=== PATIENT | female | born 1950 | race Caucasian/White ===

== ENCOUNTER 2018-07-05 18:22 | Inpatient (IN) | payer MEDICARE | END 2018-07-08 14:17 | disposition home or self-care (01) | LOC: EDH 18:22 → EDHIP 22:40 → 4CH 23:54 ==

== ENCOUNTER 2023-06-17 17:32 | Emergency (ER) | payer MEDICARE ==
[~2023-06-17] VITALS: Ht 170.2 cm; Wt 104.3 kg
[~2023-06-17 17:32] MED LIST: ALLO300T2 PO; AMLO-257 PO; CALC-190 PO; CHOL50004 PO; DULO60CA64 PO; LEVO200T10 PO; LEVO500T2 PO; LISI1TAB53 PO; LISI20TA24 PO; METF-445 PO; METO25TA6 PO; OMEP20CA12 PO; PRAV40TA3 PO; PREG100C PO; TRAZ-185 PO
[2023-06-17 18:10] LABS: BASOPHILS # (AUTO) 0.03 K/uL (0.00-0.20); BASOPHILS % (AUTO) 0.3 % (0.0-5.0); EOSINOPHILS % (AUTO) 2.3 % (0.0-8.0); IMMATURE GRANULOCYTE ABSOLUTE 0.04 K/uL (0-1); LYMPHOCYTES # (AUTO) 2.6 K/uL (1.0-4.8); LYMPHOCYTES % (AUTO) 30.2 % (21.0-51.0); MEAN CORPUSCULAR HEMOGLOBIN 26.1 pg (27.0-33.0); MEAN CORPUSCULAR VOLUME 79.1 fL (79-99); MONOCYTES # (AUTO) 0.6 K/uL (0.1-1.0); MONOCYTES % (AUTO) 7.3 % (3.0-13.0); NEUTROPHILS # (AUTO) 5.1 K/uL (1.8-7.7); NEUTROPHILS % (AUTO) 59.4 % (40.0-77.0); PLATELET COUNT (AUTO) 359 K/uL (130-400); RED BLOOD CELL COUNT(AUTO) 4.17 MIL/uL (4.00-5.50); RED CELL DISTRIBUTION WIDTH 14.6 % (11.0-15.5); WHITE BLOOD COUNT (AUTO) 8.6 K/uL (4.8-10.8)
[2023-06-17] MEDS: 0.9%NACL 1000ML 1,000 ML IV ONE (18:28)
[2023-06-17 18:33] LABS: CREATININE 2.6 mg/dL (0.5-1.0); POTASSIUM 4.2 mmol/L (3.5-5.1)
[2023-06-17 18:37] LABS: BILIRUBIN,TOTAL 0.3 mg/dL (0.2-1.0); TOTAL PROTEIN, SERUM 8.5 g/dL (6.0-8.3)
[2023-06-17 20:01] LABS: APPEARANCE,URINE CLEAR (CLEAR); BILIRUBIN,URINE NEGATIVE (NEGATIVE); COLOR,URINE LIGHT-YELLOW (YELLOW); GLUCOSE, URINE (UA) >=1000 mg/dL (NEGATIVE); KETONES,URINE NEGATIVE (NEGATIVE); LEUKOCYTE ESTERASE ,URINE 250 Leu/uL (NEGATIVE); NITRATE,URINE NEGATIVE (NEGATIVE); PROTEIN,URINE NEGATIVE (NEGATIVE); UROBILINOGEN,URINE 0.2 mg/dL (0.2-1.0)
[2023-06-17 20:02] LABS: ADD UA MICROSCOPIC YES
[2023-06-17 20:10] LABS: BACTERIA,URINE MANY /HPF (None Seen); MUCUS,URINE RARE LPF (None Seen); SQUAMOUS EPITHELIAL CELL,UR FEW /HPF (0-2)
[2023-06-17] MEDS: CEFTRIAXONE 2GM VIAL IVPB SCH (20:44)
[2023-06-17] MEDS ORDERED: LEVO-70 PO (21:12)
[2023-06-17 21:18] VITALS: BP 120/77; PULSE 77; RESP 18; O2SAT 98
== END 2023-06-17 21:45 | disposition home or self-care (01) ==
LOC: EDH 17:32
DX: E86.0 Dehydration (principal); I12.9 Hypertensive chronic kidney disease with stage 1 through stage 4 chronic kidney disease, or unspecified chronic kidney disease; N18.9 Chronic kidney disease, unspecified; D64.9 Anemia, unspecified; E66.01 Morbid (severe) obesity due to excess calories; N30.01 Acute cystitis with hematuria; Z88.0 Allergy status to penicillin; Z88.8 Allergy status to other drugs, medicaments and biological substances
CPT/HCPCS: 99284; 96365; 84484; 80053; 85025; 87040 ×2; 87088; 83605; 81001; 36415; J0696

== ENCOUNTER 2024-03-02 13:49 | Emergency (ER) | payer MEDICARE ==
[~2024-03-02] VITALS: Ht 167.6 cm; Wt 102.5 kg
[~2024-03-02 13:49] MED LIST changes: +LEVO-70 PO
[2024-03-02 13:51] VITALS: TEMP 99.1
--- NOTE | 2024-03-02 14:05 | ERN ---
ED Note History of Present Illness Stated Complaint: EYE PAIN Chief Complaint: Face Pain/Problem Time Seen by MD: 14:01 Dictation: PATIENT IS A 73-YEAR-OLD FEMALE COMING IN WITH GREEN EXUDATE AND MILD EYELID SWELLING TO THE LEFT EYELID ONSET TWO DAYS PRIOR TO ARRIVAL. SHE DENIES ANY VISUAL CHANGES NO FEVER NO CHILLS NO HISTORY OF GLAUCOMA. SHE HAS NO VISUAL FIELD CUTS. SHE HAS NOT SEEN HER PRIMARY CARE DOCTOR HOWEVER SHE CALLED HER DOCTOR THIS MORNING WHO ADVISED HER TO COME TO THE EMERGENCY ROOM TO RULE OUT SHINGLES OPHTHALMICUS Allergies: Coded Allergies: Penicillins (Unverified Allergy, Intermediate, SHORTNESS OF BREATH, 07/06/18) meloxicam (Unverified Allergy, Mild, 07/06/18) nisoldipine (Unverified Allergy, Unknown, 07/06/18) Home Meds Active Scripts Moxifloxacin HCl (Vigamox 0.5% Ophth Soln) 0.5 % Opsol, 1 DROP OS TID for 7 Days, #5 ML ONE DROP TO LEFT EYE 3 TIMES A DAY FOR SEVEN DAYS. GOOD HAND WASHING AFTER TREATING HER EYE. Prov:FRANKI DE SOUZA NP 03/02/24 Acyclovir (Acyclovir) 800 Mg Tablet, 1 TAB PO 5XDAY for 7 Days, #35 TAB 0 Refills Prov:FRANKI DE SOUZA NP 03/02/24 Levofloxacin (Levofloxacin) 500 Mg Tablet, 500 MG PO DAILY for 7 Days, #7 TAB Prov:FRANKI DE SOUZA NP 06/17/23 Levofloxacin (Levaquin) 500 Mg Tablet, 500 MG PO DAILY for 7 Days, #7 TAB 0 Refills Prov:JOLLY HELLER [facility] 07/08/18 Reported Medications Pravastatin Sodium (Pravastatin Sodium) 40 Mg Tablet, 40 MG PO HS, TAB 07/06/18 Calcium Carbonate/Vitamin D3 (Calcium + Vitamin D Tablet) 1 Each Tablet, 1 EACH PO AM, TAB 07/06/18 Cholecalciferol (Vitamin D3) 5,000 Unit Capsule, 5000 UNIT PO HS, CAP 07/06/18 Lisinopril (Lisinopril) 20 Mg Tablet, 20 MG PO AM, TAB 07/06/18 Levothyroxine Sodium (Levothyroxine Sodium) 200 Mcg Tablet, 200 MCG PO ACBKFST, TAB 07/06/18 Amlodipine Besylate (Amlodipine Besylate) 5 Mg Tablet, 5 MG PO AM, TAB 07/06/18 Metformin HCl (Metformin HCl) 850 Mg Tablet, 850 MG PO BIDMEALS, TAB 07/06/18 Trazodone HCl (Trazodone HCl) 50 Mg Tablet, 50 MG PO HS, TAB 07/06/18 Allopurinol (Allopurinol) 300 Mg Tablet, 300 MG PO AM, TAB 07/06/18 Lisinopril/Hydrochlorothiazide (Lisinopril-Hctz 20-25 mg Tab) 1 Each Tablet, 1 EACH PO BID, TAB 07/06/18 Pregabalin (Lyrica) 100 Mg Capsule, 100 MG PO AM, CAP 07/06/18 Omeprazole (Omeprazole) 20 Mg Capsule.dr, 20 MG PO ACBKFST, CAP 07/06/18 Duloxetine HCl (Duloxetine HCl) 60 Mg Capsule.dr, 60 MG PO AM, CAP 07/06/18 Metoprolol Tartrate (Metoprolol Tartrate) 25 Mg Tablet, 25 MG PO BID, TAB 07/06/18 Past Medical History Past Medical History: Diabetes-Type II, Hypertension, Hypotension, Renal Disese Additional Past Medical Hx: 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 Surgical History: Other Surgical History Other: RIGHT FOOT SURG / THYROIDECTOMY History: Not Applicable RN Note Reviewed/Agreed w/PFSH: Yes Review of System Dictation CONSTITUTIONAL: NEGATIVE EXCEPT FOR HPI HEAD/FACE: NEGATIVE EXCEPT FOR HPI EENT: NEGATIVE EXCEPT FOR HPI GREEN DRAINAGE FROM LEFT EYE WITH UPPER LID SWELLING ERYTHEMA NO LESIONS RESPIRATORY: NEGATIVE EXCEPT FOR HPI GASTROINTESTINAL/ABDOMINAL: NEGATIVE EXCEPT FOR HPI GENITOURINARY: NEGATIVE EXCEPT FOR HPI MUSCULOSKELETAL: NEGATIVE EXCEPT FOR HPI INTEGUMENTARY: NEGATIVE EXCEPT FOR HPI NEUROLOGICAL/PSYCH: NEGATIVE EXCEPT FOR HPI HEMATOLOGIC/LYMPHATIC: NEGATIVE EXCEPT FOR HPI ALL SYSTEMS NEGATIVE, EXCEPT NOTED ABOVE. 13 POINT REVIEW OF SYSTEMS ASSESSED AND ALL NEGATIVE EXCEPT FOR ABOVE. Initial Vital Sign VS Vital Signs Date Time Temp Pulse Resp B/P (MAP) Pulse Ox O2 Delivery O2 Flow Rate FiO2 03/02/24 13:51 99.1 79 16 160/92 95 Room Air 03/02/24 13:51 0 21 Physical Exam Dictation VITAL SIGNS REVIEWED GENERAL APPEARANCE: ALERT, ORIENTED X 3, NO ACUTE DISTRESS, WELL DEVELOPED, NOURISHED. HEAD AND FACE: NON-TRAUMATIC. EYES: PERRL, PINK CONJUNCTIVAS, LEFT UPPER PALPEBRAL FOLD ERYTHEMA WITH GREEN EXUDATE NOTED FOR MY. NO VISUAL FIELD CUT EOMS INTACT EARS: PINNAS INTACT AND NO SIGNS OF TRAUMA OR ERYTHEMA EAR CANALS CLEAR AND NO DISCHARGE TM NO ERYTHEMA NOSE: NO DISCHARGE, NO BLEEDING. OROPHARYNX: MOUTH NORMAL, TONGUE PINK, PHARYNX CLEAR,NO ERYTHEMA, TONSILS NO EXUDATES, NO ABSCESSES NOTED, MUCOUS MEMBRANE MOIST NECK: SUPPLE, NON-TENDER, NO THYROMEGALY, NO MASSES, NO JVD, NO BRUITS BREAST:DEFERRED CHEST:NO TENDERNESS, NO CREPITUS, NO PARADOXICAL MOVEMENT, NO RETRACTIONS LUNGS:CLEAR, WELL-VENTILATED, SYMMETRIC, NO RALES, NO WHEEZING, NO RHONCHI, NO STRIDOR, GOOD BREATH SOUNDS BILATERALLY HEART: REGULAR RATE, REGULAR RHYTHM, NO MURMUR, NO GALLOPS VASCULAR: NO PERIPHERAL EDEMA, ABDOMEN: SOFT, POSITIVE BOWEL SOUNDS, NONDISTENDED, NO GUARDING, NONTENDER, NO REBOUND, NO MASSES NO HEPATOMEGALY, NO SPLENOMEGALY, NO WALSH'S SIGN, NO HERNIAS. RECTAL: DEFERRED GENITAL: DEFERRED NEUROLOGICAL: NORMAL SPEECH, MOTOR FUNCTION INTACT, SENSORY FUNCTION INTACT MUSCULOSKELETAL: NECK NONTENDER, FULL RANGE OF MOTION, BACK NONTENDER, FULL RANGE OF MOTION, EXTREMITIES: NONTENDER, FULL RANGE OF MOTION SKIN: COLOR PINK, DRY, NO TURGOR, NO RASH, NO LACERATIONS, NO ABRASIONS, NO CONTUSIONS. LYMPHATIC: DEFERRED Results (Laboratory/Radiology) Laboratory/Radiology Laboratory Tests Test 03/02/24 14:16 03/02/24 15:15 White Blood Count 6.5 K/uL (4.8-10.8) Red Blood Count 4.30 MIL/uL (4.00-5.50) Hemoglobin 11.2 g/dL (12.0-16.0) L Hematocrit 35.3 % (36-48) L Mean Corpuscular Volume 82.1 fL (79-99) Mean Corpuscular Hemoglobin 26.0 pg (27.0-33.0) L Mean Corpuscular Hemoglobin Concent 31.7 g/dL (32.0-36.0) L Red Cell Distribution Width 15.3 % (11.0-15.5) Platelet Count 304 K/uL (130-400) Mean Platelet Volume 9.0 fL (7.5-10.5) Immature Granulocyte % (Auto) 0.3 % (0-1) Neutrophils (%) (Auto) 72.2 % (40.0-77.0) Lymphocytes (%) (Auto) 16.0 % (21.0-51.0) L Monocytes (%) (Auto) 10.0 % (3.0-13.0) Eosinophils (%) (Auto) 1.2 % (0.0-8.0) Basophils (%) (Auto) 0.3 % (0.0-5.0) Neutrophils # (Auto) 4.7 K/uL (1.8-7.7) Lymphocytes # (Auto) 1.0 K/uL (1.0-4.8) Monocytes # (Auto) 0.7 K/uL (0.1-1.0) Eosinophils # (Auto) 0.08 K/uL (0.00-0.70) Basophils # (Auto) 0.02 K/uL (0.00-0.20) Absolute Immature Granulocyte (auto 0.02 K/uL (0-1) Nucleated Red Blood Cells 0.0 % (0.0-0.19) Sodium Level 140 mmol/L (136-145) Potassium Level 3.7 mmol/L (3.5-5.1) Chloride Level 101 mmol/L (101-111) Carbon Dioxide Level 28 mmol/L (21-32) Blood Urea Nitrogen 25 mg/dL (7-18) H Creatinine 1.8 mg/dL (0.5-1.0) H Glomerular Filtration Rate Calc 29 mL/min (>90) Random Glucose 156 mg/dL (70-105) H Lactic Acid Level 1.7 mmol/L (0.8-2.5) Total Calcium 9.2 mg/dL (8.5-10.1) Urine Color LIGHT-YELLOW (YELLOW) Urine Appearance CLEAR (CLEAR) Urine pH 5.0 (5.0-8.0) Urine Specific [place] 1.018 (1.001-1.031) Urine Protein NEGATIVE mg/dL (NEGATIVE) Urine Glucose (UA) >=1000 mg/dL (NEGATIVE) H Urine Ketones NEGATIVE mg/dL (NEGATIVE) Urine Occult Blood NEGATIVE (NEGATIVE) Urine Nitrate NEGATIVE (NEGATIVE) Urine Bilirubin NEGATIVE mg/dL (NEGATIVE) Urine Urobilinogen 0.2 mg/dL (0.2-1.0) Urine Leukocyte Esterase 25 Dieudonne/uL (NEGATIVE) H Urine RBC 0-1 /HPF (0-1) Urine WBC 2-5 /HPF (0-1) H Urine Squamous Epithelial Cells RARE /HPF (0-2) Urine Bacteria RARE /HPF (None Seen) Labs Reviewed?: Yes ED Course ED Course Orders Procedure Category Date Status Time Cbc With Differential LAB 03/02/24 Complete 14:02 Blood Cult KATY 03/02/24 In Process 14:02 Urinalysis Profile LAB 03/02/24 Complete 14:02 Lactic Acid LAB 03/02/24 Complete 14:02 Basic Metabolic Panel LAB 03/02/24 Complete 14:02 Acyclovir 800 Mg PHA 03/02/24 Complete Tablet (Zovirax 800mg 17:30 Tetracaine Hcl PHA 03/02/24 Complete (Pontocaine 0.5% 17:12 Fluorescein Sodium PHA 03/02/24 In Process (Ksqtb-T-Gwejh At) 17:30 Fluorescein Sodium PHA 03/02/24 Complete (Mdvcn-C-Epveu At) 17:13 Current Medications Medications (Trade) Dose Ordered Sig/Stephanie Route PRN Reason Start Time Stop Time Status Last Admin Dose Admin Acyclovir (Zovirax 800mg Tab) 800 mg ONCE ONCE PO 03/02/24 17:30 03/02/24 17:31 DC 03/02/24 17:17 Fluorescein Sodium (Wmsjl-K-Julha At) 1 strip ONCE OP 03/02/24 17:30 04/01/24 17:29 03/02/24 17:17 Fluorescein Sodium (Ssesy-Q-Iscpz At) 1 strip STK-MED ONCE .ROUTE 03/02/24 17:13 03/02/24 17:14 DC Tetracaine HCl (Pontocaine 0.5% Ophth Soln) 2 drop ONCE STAT OP 03/02/24 17:12 03/02/24 17:13 DC 03/02/24 17:22 Vital Signs Date Time Temp Pulse Resp B/P (MAP) Pulse Ox O2 Delivery O2 Flow Rate FiO2 03/02/24 17:38 72 17 125/70 96 Room Air* 0 21 03/02/24 15:16 71 17 101/62 98 Room Air* 0 21 03/02/24 13:51 99.1 79 16 160/92 95 Room Air* 0 21 03/02/24 13:51 99.1 79 16 160/92 95 Room Air 1705/NO OBSERVABLE LESIONS AROUND LEFT EYE. NO VESICULAR LESIONS NO ACUTE PAIN EOMS ARE INTACT PATIENT WILL BE TREATED EMPIRICALLY WITH ACYCLOVIR AND PRESCRIBED ANTIBIOTICS FOR CONJUNCTIVITIS. SHE WILL BE REFERRED TO [facility] NEXT WEEK Medical Decision Making MDM MDM: DIFFERENTIAL DIAGNOSIS: SHINGLES OPHTHALMICUS, CONJUNCTIVITIS/FACIAL CELLULITIS/SEPSIS RATIONALE: TESTS CONSIDERED AND ORDERED SECONDARY TO SHARED DECISION MAKING INCLUDE: LABS PREVIOUS OUTSIDE RECORDS REVIEWED: OLD ER VISITS. RISK OF COMPLICATION AND/OR MORBIDITY OR MORTALITY OF PATIENT MANAGEMENT: NONE MEDICATIONS-PER MEDICATION RECONCILIATION NEED FOR HOSPITALIZATION: PATIENT DOES NOT MEET CRITERIA FOR HOSPITALIZATION. NO NEED FOR EMERGENCY MAJOR/MINOR SURGERY: NO THERE ARE NO SOCIAL CONCERNS WITH THIS PATIENT. PRESCRIPTION DRUG MANAGEMENT VIGAMOX DROPS, ACYCLOVIR 800 TIMES A DAY FOR THE NEXT SEVEN DAYS PRESCRIPTIONS WILL INCLUDE SYMPTOMATIC CARE PATIENT'S PRIOR EXTERNAL MEDICAL RECORDS FROM OTHER ER VISITS WERE REVIEWED BY ME INDICATED. PRIOR TESTING AND RESULTS FROM PREVIOUS VISITS WERE REVIEWED. PRIOR TESTS WERE TAKEN INTO ACCOUNT WITH MEDICAL DECISION MAKING AND RESOURCE UTILIZATION, INDEPENDENT HISTORIAN/HISTORIANS WERE USED TO OBTAIN COMPLETE MEDICAL HISTORY. I INDEPENDENTLY INTERPRETED THE TEST THAT WERE PERFORMED, RESULTS WERE REVIEWED BY ME AND CONSIDERED FINDINGS ON RADIOLOGY IF ORDERED. MEDICAL MANAGEMENT AND EXAMINATION INTERPRETATION DISCUSSIONS WERE HAD BY ME WITH OTHER QUALIFIED HEALTHCARE PROFESSIONALS INDICATED FOR THE PATIENT'S CARE. Procedure Procedure Dictation: 7091/PROCEDURE EXPLAINED TO PATIENT SHE AGREED TO PROCEED TWO DROPS TETRACAINE TO LEFT EYE FLUORESCEIN STAIN APPLIED RIGHT EYE EXAMINED WITH BLACK LAMP TO INCLUDE EVERSION OF UPPER LID NO PUNCTATE KERATITIS NOTED CORNEAS INTACT NO FOREIGN BODIES. CONJUNCTIVA IS INJECTED DX & DISP Disposition: Discharge Departure Impression: Primary Impression: Acute conjunctivitis, left eye Additional Impressions: Facial rash, Stage 4 chronic kidney disease, Uncontrolled diabetes mellitus Condition: Stable Scripts Acetaminophen with Codeine (Acetaminophen-Cod #3 Tablet) 300 Mg-30 Mg Tablet 1 TAB PO Q4H PRN for MODERATE TO SEVERE PAIN, #15 TAB 0 Refills Prov: FRANKI DE SOUZA [employer]ILINE [employer] 03/02/24 Moxifloxacin HCl (Vigamox 0.5% Ophth Soln) 0.5 % Opsol 1 DROP OS TID for 7 Days, #5 ML ONE DROP TO LEFT EYE 3 TIMES A DAY FOR SEVEN DAYS. GOOD HAND WASHING AFTER TREATING HER EYE. Prov: FRANKI DE SOUZA NP 03/02/24 Acyclovir (Acyclovir) 800 Mg Tablet 1 TAB PO 5XDAY for 7 Days, #35 TAB 0 Refills Prov: FRANKI DE SOUZA NP 03/02/24 Additional Instructions: FOLLOW-UP WITH PRIMARY CARE PROVIDER IN 1 TO 2 DAYS. TAKE MEDICATIONS DIRECTED HERE IN THE EMERGENCY ROOM. OKAY TO CONTINUE HOME MEDICATIONS UNLESS OTHERWISE DISCUSSED DURING YOUR VISIT IN THE EMERGENCY ROOM TODAY. RETURN TO YOUR NEAREST EMERGENCY ROOM IF SYMPTOMS WORSEN OR IF THERE IS NO IMPROVEMENT. CALL 911 IF YOU NEED IMMEDIATE ASSISTANCE. TAKE TYLENOL OR MOTRIN [id number] NEEDED AND IF NO CONTRAINDICATIONS ARE PRESENT. INCREASE ORAL HYDRATION. A WOUND CULTURE OR URINE CULTURE WAS ORDERED HERE IN THE EMERGENCY ROOM DEPARTMENT PLEASE FOLLOW-UP WITH PRIMARY CARE PROVIDER AND ADVISE THEM TO GET REPEAT PORTS FROM OUR FACILITY. IF YOU HAD ANY MICHAEL WRAP/SPLINTS THAT WERE APPLIED HERE, PLEASE DO NOT REMOVE THEM UNTIL YOU SEE YOUR PRIMARY CARE OR SPECIALTY. USE EYEDROPS DIRECTED3 TIMES A DAY FOR SEVEN DAYS. TAKE ACYCLOVIR 800 MG5 TIMES A DAY FOR SEVEN DAYS. FOLLOW UP WITH YOUR PRIMARY CARE DOCTOR ARE [facility] OPH[facility] IN THE NEXT 2-3 DAYS. Referrals: SELF,REFERRAL (PCP) Time of Disposition: 17:07 I have reviewed the case, and I agree with, Diagnosis and Plan FRANKI DE SOUZA NP Mar 02, 2024 14:05
[2024-03-02 14:28] LABS: BASOPHILS # (AUTO) 0.02 K/uL (0.00-0.20); BASOPHILS % (AUTO) 0.3 % (0.0-5.0); EOSINOPHILS # (AUTO) 0.08 K/uL (0.00-0.70); EOSINOPHILS % (AUTO) 1.2 % (0.0-8.0); HEMATOCRIT 35.3 % (36-48); IMMATURE GRANULOCYTE ABSOLUTE 0.02 K/uL (0-1); MEAN CORPUSCULAR HGB CONC 31.7 g/dL (32.0-36.0); MEAN CORPUSCULAR VOLUME 82.1 fL (79-99); MONOCYTES # (AUTO) 0.7 K/uL (0.1-1.0); NEUTROPHILS # (AUTO) 4.7 K/uL (1.8-7.7); NEUTROPHILS % (AUTO) 72.2 % (40.0-77.0); PLATELET COUNT (AUTO) 304 K/uL (130-400); RED CELL DISTRIBUTION WIDTH 15.3 % (11.0-15.5); WHITE BLOOD COUNT (AUTO) 6.5 K/uL (4.8-10.8)
[2024-03-02 14:36] LABS: CREATININE 1.8 mg/dL (0.5-1.0); POTASSIUM 3.7 mmol/L (3.5-5.1)
[2024-03-02] MEDS ORDERED: ACYC-138 PO (17:09)
[2024-03-02] MEDS ORDERED: MOXIOS OS (17:09)
[2024-03-02] MEDS: ACYCLOVIR 800 MG TABLET PO ONE (17:17)
[2024-03-02] MEDS: FLUORESCEIN SODIUM 1 STRIP STRIP OP SCH (17:17)
[2024-03-02] MEDS: FLUORESCEIN SODIUM 1 STRIP STRIP ONE (17:22)
[2024-03-02] MEDS: TETRACAINE HCL 0.5% 4 ML OPHTH SOLN OP STA (17:22)
[2024-03-02 17:28] LABS: APPEARANCE,URINE CLEAR (CLEAR); BILIRUBIN,URINE NEGATIVE (NEGATIVE); COLOR,URINE LIGHT-YELLOW (YELLOW); GLUCOSE, URINE (UA) >=1000 mg/dL (NEGATIVE); KETONES,URINE NEGATIVE (NEGATIVE); LEUKOCYTE ESTERASE ,URINE 25 Leu/uL (NEGATIVE); NITRATE,URINE NEGATIVE (NEGATIVE); OCCULT BLOOD,URINE NEGATIVE (NEGATIVE); PROTEIN,URINE NEGATIVE (NEGATIVE); UROBILINOGEN,URINE 0.2 mg/dL (0.2-1.0)
[2024-03-02 17:29] LABS: ADD UA MICROSCOPIC YES
[2024-03-02 17:36] LABS: BACTERIA,URINE RARE /HPF (None Seen); MUCUS,URINE RARE LPF (None Seen); RBC,URINE 0-1 /HPF (0-1); SQUAMOUS EPITHELIAL CELL,UR RARE /HPF (0-2)
[2024-03-02 17:38] VITALS: BP 125/70; PULSE 72; RESP 17; O2SAT 96
[2024-03-02] MEDS ORDERED: ACET-2079 PO (17:42)
[2024-03-02] MEDS: acetaMINOPHEN WITH coDEINE 1 TAB TAB PO ONE (17:47)
== END 2024-03-02 17:55 | disposition home or self-care (01) ==
LOC: EDH 13:49
DX: I12.9 Hypertensive chronic kidney disease with stage 1 through stage 4 chronic kidney disease, or unspecified chronic kidney disease (principal); E11.22 Type 2 diabetes mellitus with diabetic chronic kidney disease; N18.4 Chronic kidney disease, stage 4 (severe); E11.65 Type 2 diabetes mellitus with hyperglycemia; H10.32 Unspecified acute conjunctivitis, left eye; R21 Rash and other nonspecific skin eruption; Z79.899 Other long term (current) drug therapy; Z88.0 Allergy status to penicillin; Z88.8 Allergy status to other drugs, medicaments and biological substances; Z90.89 Acquired absence of other organs
CPT/HCPCS: 36415; 80048; 81001; 83605; 85025; 87040; 99283